=== PATIENT | male | born 1940 | race Caucasian/White ===

== ENCOUNTER → 2019-02-11 10:06 | Outpatient (CLI) | payer MEDICARE, OTHER, SELFPAY ==
--- NOTE | 2019-02-11 10:12 | CA_ITS ---
PROCEDURE: 2-D M-mode and color Doppler study INDICATIONS FOR THE TEST: Chest pain COPD Heart Murmur Tobacco Smoking Palpitations Fatigue Syncope Edema Hypertension+Diabetes Mellitus Rheumatic Fever SOB JENSEN Obesity+Hyperlipidemia+ Family History HD Additional History AF, ABN EKG PATIENT INFORMATION HEIGHT: 73 WEIGHT:270 GENDER: Male B/P:97/63 2-D/M-MODE INTERPRETATION: 2-D MEASUREMENTS OBSERVED VALUES IN CMS Right Ventricular Dimension (RVDd) 3.2 Interventricular Septum (Thickness)(IVsd) 1.6 Left Ventricular Internal Dimensions(LVIDd) 5.2 Left Ventricular Posterior Wall (Thickness)(LVPWd) 1.1 Aortic Root 4.1 Aortic Cusp Separation 1.5 Left Atrial Dimensions (LAD) 5.5 2D 1. Left atrium is moderately enlarged, left ventricle is normal size, mild concentric left ventricular hypertrophy, moderately reduced left ventricular systolic function, visually estimated ejection fraction 35-40%, left ventricle is globally hypokinetic. 2. Right atrium and right ventricle are mildly enlarged with normal contractility. 3. The aortic valve is thickened and calcified. 4. The mitral and tricuspid valve leaflets are minimally thickened. 5. The pulmonic valve is poorly visualized. 6. No significant pericardial effusion noted. DOPPLER INTERROGATION: Doppler interrogation of the aortic, mitral and tricuspid valvular presence of mild aortic, mild mitral and tricuspid regurgitation, tricuspid regurgitation jet velocity is inadequate for calculation of the right ventricular systolic pressure, mild aortic insufficiency is also seen. Diastolic parameters are inconclusive. CONCLUSION: 1. Biatrial enlargement, normal left ventricular size, mild concentric left ventricular hypertrophy, moderately reduced left ventricular systolic function, visually estimated ejection fraction 35-40%, left ventricle is globally hypokinetic, diastolic parameters are inconclusive. 2. Mild aortic, mild mitral and tricuspid regurgitation 3. No significant pericardial effusion noted.
== END ==
PROVIDERS: PCP Family Medicine; Visit Provider Internal Medicine
DX: D75.1 Secondary polycythemia (principal); E66.09 Other obesity due to excess calories; E78.2 Mixed hyperlipidemia; I11.9 Hypertensive heart disease without heart failure; I25.10 Atherosclerotic heart disease of native coronary artery without angina pectoris; I44.0 Atrioventricular block, first degree; I71.4 Abdominal aortic aneurysm, without rupture; I73.9 Peripheral vascular disease, unspecified; R06.09 Other forms of dyspnea; R53.83 Other fatigue; R94.31 Abnormal electrocardiogram [ECG] [EKG]; Z85.528 Personal history of other malignant neoplasm of kidney; Z90.5 Acquired absence of kidney
CPT/HCPCS: 93306

== ENCOUNTER → 2019-07-03 09:54 | Outpatient (CLI) | payer MEDICARE, OTHER, SELFPAY ==
--- NOTE | 2019-07-03 09:57 | US_ITS ---
PROCEDURE: US KIDNEY CLINICAL INDICATION: I48.0 Paroxysmal atrial fibrillation History of renal cell carcinoma COMPARISON: No exams were available for comparison FINDINGS: The right kidney is 13 x 6 x 6.5 cm. No hydronephrosis or cortical thinning. No obvious renal mass. The left kidney has an unremarkable appearance at 12 x 6 x 6 cm. There is some scarring along the lower pole of the left kidney. No obvious renal mass or hydronephrosis. IMPRESSION: Scarring along the lower pole of the left kidney. Otherwise negative renal ultrasound Dictated by: Vignesh Devlin MD 07/03/2019 19:19 Electronically signed by Vignesh Devlin MD in [place] 07/03/2019 19:19
== END ==
PROVIDERS: PCP Family Medicine; Visit Provider Internal Medicine
DX: D75.1 Secondary polycythemia (principal); E66.09 Other obesity due to excess calories; E78.2 Mixed hyperlipidemia; I11.9 Hypertensive heart disease without heart failure; I25.10 Atherosclerotic heart disease of native coronary artery without angina pectoris; I48.0 Paroxysmal atrial fibrillation; I71.4 Abdominal aortic aneurysm, without rupture; I73.9 Peripheral vascular disease, unspecified; R06.09 Other forms of dyspnea; R53.83 Other fatigue; R94.31 Abnormal electrocardiogram [ECG] [EKG]; Z85.528 Personal history of other malignant neoplasm of kidney; Z87.891 Personal history of nicotine dependence
CPT/HCPCS: 76770

== ENCOUNTER 2019-07-22 14:37 | Observation (INO) ==
[2019-07-22 15:27] LABS: Basophils % 0.5 % (0.1-2.0); Eosinophils # 0.1 K/mm3 (0.0-0.4); Eosinophils % 1.5 % (0.1-12.0); Lymphocytes # 1.5 K/mm3 (0.7-4.5); Lymphocytes % 23.4 % (10-50); Mean Corpuscular HGB Conc 30.9 g/dL (31.8-35.4); Monocytes # 0.4 K/mm3 (0.1-1.0); Monocytes % 6.7 % (1.7-9.3); Neutrophils # 4.3 K/mm3 (1.8-7.8); Neutrophils % 67.9 % (37.0-80.0); Platelet Count 302 K/mm3 (142-424); Red Blood Count 1.96 M/mm3 (4.60-6.20); Red Cell Distribution Width 17.5 % (11.5-17.5); White Blood Count 6.3 K/mm3 (4.8-10.8)
[2019-07-22 15:45] LABS: Hematocrit 20.7 % (42.0-52.0); Hemoglobin 6.4 g/dL (14.1-18.0)
--- NOTE | 2019-07-23 07:37 | Pharmacy Consult Notes ---
[facility] Pharmacy VTE Monitoring - Patient Demographics Admission date: 07/23/19 Report Date: 07/23/19 Time: 07:36 Allergies/Adverse Reactions: Patient Allergies Izgddsg-Fie-Fno Reductase Inhibitor Allergy (Severe, Verified 07/22/19 13:54) rhabdo rosuvastatin [From Crestor] Adverse Reaction (Severe, Verified 07/22/19 13:54) rhabdo cilantro Allergy (Uncoded 07/22/19 13:54) Height: 1.83 m Weight: 117.707 kg - VTE Risk Labs: VTE Related Lab Results Hgb 6.4 g/dL (14.1-18.0) L* 07/22/19 14:42 Hct 20.7 % (42.0-52.0) L* 07/22/19 14:42 Plt Count 302 K/mm3 (142-424) 07/22/19 14:42 Was VTE Risk Assessment Performed: Yes VTE Score: 6 VTE Risk Level: Moderate Risk Clinical Trial Participant: No - Prophylaxis VTE Prophylaxis Ordered?: Yes Types of VTE Prophylaxis: TEDS Knee High
[2019-07-23 07:48] LABS: Basophils % 0.6 % (0.1-2.0); Eosinophils # 0.2 K/mm3 (0.0-0.4); Eosinophils % 4.2 % (0.1-12.0); Lymphocytes # 1.3 K/mm3 (0.7-4.5); Lymphocytes % 24.8 % (10-50); Mean Corpuscular Volume 98.2 fl (80-94); Mean Platelet Volume 8.2 fl (7.4-10.4); Monocytes # 0.4 K/mm3 (0.1-1.0); Monocytes % 7.2 % (1.7-9.3); Neutrophils # 3.2 K/mm3 (1.8-7.8); Neutrophils % 63.2 % (37.0-80.0); Platelet Count 228 K/mm3 (142-424); Red Blood Count 2.75 M/mm3 (4.60-6.20); Red Cell Distribution Width 18.2 % (11.5-17.5); White Blood Count 5.1 K/mm3 (4.8-10.8)
[2019-07-23 07:50] LABS: Hemoglobin 8.4 g/dL (14.1-18.0)
[2019-07-23 07:58] LABS: Anion Gap 9.3 mEq/L (5-15); Calcium 8.8 mg/dL (8.5-10.1)
--- NOTE | 2019-07-23 09:52 | Progress Note ---
Subjective Date: 07/23/19 Time: 09:00 Principal diagnosis: Symptomatic anemia Interval history: This is a 79-year-old gentleman who was seen in the outpatient cardiology clinic yesterday. The patient was complaining of extreme fatigue and chest pain. The patient states that he had not felt well for the last several days. Blood work was obtained and the patient did have profound anemia with a hemoglobin of 6.4. The patient was then admitted to the hospital for transfusions of packed red blood cells. The patient has had a total of 4 units of packed red blood cells. His hemoglobin is up to 8.[address] Ledezma's goal for this patient is to have a hemoglobin of 10 or greater. The patient is status post a watchman's device. He is supposed to be on anticoagulation for 45 days post placement of the watchman's device. Dr. Ledezma did call Dr. Lilly this morning to discuss the patient's profound symptomatic anemia and his response to 4 units of packed red blood cells. Dr. Lilly has advised to stop Xarelto. He should be switched to dual antiplatelet therapy for 6 months. At 45 days post watchman's device placement, the patient should undergo a JOSE. He also recommends to continue transfusing the patient until his hemoglobin is 10 or greater. This morning the patient states that he is feeling much better. He states his fatigue has improved. He denies any chest pain, pressure or shortness of breath. He denies any edema, fever, chills, nausea, vomiting, diarrhea, PND or orthopnea. Exam Vital signs and Labs for Last 24 Hours: Temp Pulse Resp BP Pulse Ox 98.4 F 88 17 125/59 L 96 07/23/19 08:00 07/23/19 08:00 07/23/19 08:00 07/23/19 08:00 07/23/19 08:00 Laboratory Results - last 24 hr 07/22/19 14:42: WBC 6.3, RBC 1.96 L*, Hgb 6.4 L*, Hct 20.7 L*, MCV 106.0 H, MCH 32.7 H, MCHC 30.9 L, RDW 17.5, Plt Count 302, MPV 8.0, Neut % (Auto) 67.9, Lymph % (Auto) 23.4, [place] % (Auto) 6.7, Eos % (Auto) 1.5, Baso % (Auto) 0.5, Neut # (Auto) 4.3, Lymph # (Auto) 1.5, [place] # (Auto) 0.4, Eos # (Auto) 0.1, Baso # (Auto) 0.0 07/22/19 14:42: Troponin I < 0.02 07/22/19 17:02: Blood Type A Positive, Antibody Screen Negative, Crossmatch (AHG) See Detail 07/22/19 17:30: Blood Type Confirm A Positive 07/22/19 20:00: Troponin I < 0.02 07/22/19 23:05: Troponin I < 0.02 07/23/19 07:28: WBC 5.1, RBC 2.75 L D, Hgb 8.4 L D, Hct 27.0 L, MCV 98.2 H, MCH 30.5, MCHC 31.0 L, RDW 18.2 H, Plt Count 228, MPV 8.2, Neut % (Auto) 63.2, Lymph % (Auto) 24.8, [place] % (Auto) 7.2, Eos % (Auto) 4.2, Baso % (Auto) 0.6, Neut # (Auto) 3.2, Lymph # (Auto) 1.3, [place] # (Auto) 0.4, Eos # (Auto) 0.2, Baso # (Auto) 0.0 07/23/19 07:28: Sodium 139, Potassium 4.3, Chloride 105, Carbon Dioxide 29, Anion Gap 9.3, BUN 24 H, Creatinine 1.32 H, Estimated Creat Clear 78, Estimated GFR 53 L, Est GFR ( Amer) 64, Glucose 101, Calcium 8.8, Magnesium 1.5 I & O for Last 24 hours: Intake & Output 07/20/19 07/21/19 07/22/19 07/23/19 23:59 23:59 23:59 23:59 Intake Total 715 / 715 Balance 715 / 715 Weight 254 lb 259 lb 8 oz Narrative: Telemetry strip is sinus bradycardia with a rate of 56 - *Routine HEENT Exam Head: Present: normocephalic, atraumatic Eye: Present: EOMI, PERRL ENT: Present: mucous membranes moist - *Routine Neck Exam Present: supple, full ROM, normal carotid upstroke. Absent: JVD, carotid bruit, lymphadenopathy - *Routine Respiratory Exam Present: CTA bilaterally - *Routine Cardiovascular Exam Present: RRR, Normal S1, Normal S2. Absent: murmur, gallop - *Routine Abdominal Exam Present: soft, normoactive bowel sounds. Absent: tenderness, distended - *Routine Extremities Exam Present: full ROM, pulses intact. Absent: cyanosis, clubbing, edema, normal capillary refill, calf tenderness - *Routine Skin Exam Present: intact, warm. Absent: erythema, rash - *Routine Neurological Exam Present: alert, oriented X3, CN II-XII intact. Absent: sensory deficit, motor deficit - Detailed Eye Exam Eyelids: Left normal inspection Progress Note: A&P (1) Symptomatic anemia Status: Acute Current Visit: Yes (2) Iron deficiency anemia Status: Acute Current Visit: Yes (3) Angina pectoris Status: Acute Current Visit: Yes (4) Atrial fibrillation Status: Chronic Current Visit: No (5) Fatigue Status: Chronic Current Visit: No (6) Obesity Status: Chronic Current Visit: No (7) PAD (peripheral artery disease) Status: Chronic Current Visit: No (8) AAA (abdominal aortic aneurysm) Status: Chronic Current Visit: No (9) History of renal cell carcinoma Status: Chronic Current Visit: No (10) Hyperlipidemia Status: Chronic Current Visit: No (11) Hypertensive heart disease Status: Chronic Current Visit: No (12) Coronary artery disease Status: Chronic Current Visit: No (13) Presence of Watchman left atrial appendage closure device Status: Chronic Current Visit: Yes Assessment and Plan for All Diagnoses:: Plan: 1. The patient was admitted to the hospital for symptomatic anemia. The patient has been transfused with 4 units of packed red blood cells. His hemoglobin has went up to 8.[address] Ledezma recommends a hemoglobin of 10 or greater. The patient will likely need at least 2 more additional units of packed red blood cells. 2. The patient will need to be on a proton pump inhibitor. We will get him started on Protonix [address] Ledezma has discussed this case with Dr. Lilly. Although the patient has not had his watchman's device 45 days, given his symptomatic anemia will need to stop his Xarelto. He will need to be switched over to dual antiplatelet therapy with aspirin 81 mg daily and Plavix 75 mg daily for 6 months. We have discussed this with the patient and we will get him started on dual antiplatelet therapy today. 4. The patient will need a JOSE 45 days post watchman's device per Dr. Lilly's recommendations. 5. His coronary artery disease is likely stable. His angina was most likely from his anemia. He is ruled out for an [place]. No plans for invasive cardiac testing. 6. His blood pressure is well controlled. 7. His LDL goal is less than 55. 8. The patient does have a AAA which is followed in our outpatient clinic. 9. PAD is stable. 10. The patient does have paroxysmal atrial fibrillation. He is in sinus rhythm this morning. As mentioned before he is status post watchman's device. His Xarelto is being stopped and he will be switched over to dual antiplatelet therapy for 6 months. 11. Once the patient's hemoglobin is 10 or greater then he can be discharged from a cardiac standpoint. 12. Further recommendations will be made pending the patient's response to treatment. Thank you for the opportunity to help participate in the care of this patient.
[2019-07-23 12:37] LABS: Hemoglobin 8.5 g/dL (14.1-18.0)
--- NOTE | 2019-07-23 13:03 | History & Physical Report ---
*Admission Date: 07/22/19 *Chief complaint: Chest pain and fatigue *History of present illness: 79 YOM resting in bed, present. He reports he has a good feeling better after receiving blood. Denies SOA or CP. Informed him he most likely WILL NOT be D/C today. He verbalizes he understands. This is a 79-year-old gentleman who was seen in the outpatient cardiology clinic yesterday. The patient was complaining of extreme fatigue and chest pain. The patient states that he had not felt well for the last several days. Blood work was obtained and the patient did have profound anemia with a hemoglobin of 6.4. The patient was then admitted to the hospital for transfusions of packed red blood cells. The patient has had a total of 4 units of packed red blood cells. His hemoglobin is up to 8.[address] Ledezma's goal for this patient is to have a hemoglobin of 10 or greater. The patient is status post a watchman's device. He is supposed to be on anticoagulation for 45 days post placement of the watchman's device. Dr. Ledezma did call Dr. Lilly this morning to discuss the patient's profound symptomatic anemia and his response to 4 units of packed red blood cells. Dr. Lilly has advised to stop Xarelto. He should be switched to dual antiplatelet therapy for 6 months. At 45 days post watchman's device placement, the patient should undergo a JOSE. He also recommends to continue transfusing the patient until his hemoglobin is 10 or greater. This morning the patient states that he is feeling much better. He states his fatigue has improved. He denies any chest pain, pressure or shortness of breath. He denies any edema, fever, chills, nausea, vomiting, diarrhea, PND or orthopnea. (Per Dillan Hemphill APRN) [facility] History Medical History: Reports:: Cancer (KIDNEY CANCER), Coronary Artery Disease, Diabetes Mellitus Type 2, Hyperlipidemia, Hypertension Denies:: Diabetes Mellitus Type 1, MRSA, Seizures *Have you ever received a pneumonia vaccine?: Yes *Have you received a flu vaccine this season?: Yes Other Medical History: Reports: Hypothyroidism Other Surgeries: Yes: No Previous Surgery, Angioplasty, Cancer Surgery, Other Amputation: No Fractures: No - *Social History Educational Level: Completed College Smoking Status: Former smoker Tobacco Type: cigarettes Alcohol Intake: never Alcohol Intake Frequency:: 3 or more drinks per day Substance Use Type: denies use *Occupational Status:: retired Housing: house Household Members: spouse *Travel in the last 8 weeks: None Family Hx:: Cancer Review of Systems - Review of Systems Review of systems:: pertinent systems reviewed and negative unless documented below - Constitutional Reports fatigue - Eyes Denies blurry vision, Denies loss of vision - ENT Denies difficulty swallowing, Denies sinus pain, Denies sinus pressure - *Cardiovascular Reports chest pain, Reports chest pain at rest, Reports shortness of breath - *Respiratory Reports shortness of breath, Denies chest congestion - *Gastrointestinal Reports black, tarry stools, Denies abdominal pain - *Genitourinary Denies difficulty urinating - *Musculoskeletal Denies neck pain - Integumentary/Breasts Denies yellowing of the skin, Denies rash - *Neurologic Denies abnormal movements, Denies seizure-like activity - Endocrine Denies cold intolerance, Denies increased thirst - Hematologic/Lymphatic Reports easy bleeding - Allergic/Immunologic Denies throat swelling, Denies wheezing Meds Home Medications Medication Instructions Recorded Confirmed Type nitroglycerin 0.4 mg sublingual 0.4 mg SUBLINGUAL Q5M PRN 10/30/17 07/22/19 History tablet nutritional supplement-fiber oral 1 each PO DAILYP PRN g 09/03/18 07/23/19 History liquid magnesium 400 mg (as magnesium 400 mg PO DAILY cap 02/04/19 07/22/19 History oxide) capsule aspirin 81 mg tablet,delayed 81 mg PO DAILY 06/11/19 07/22/19 History release rivaroxaban 20 mg tablet 20 mg PO DAILY 07/03/19 07/22/19 History Digoxin 125 mcg PO DAILY 07/22/19 07/22/19 History Docusate Sodium 100 mg PO BID 07/22/19 07/22/19 History Ezetimibe 10 mg PO DAILY 07/22/19 07/23/19 History Ferrous Sulfate 325 mg PO BID 07/22/19 07/22/19 History Levothyroxine Sodium [Synthroid 50 mcg PO DAILY 07/22/19 07/23/19 History 50mcg (0.05mg) tab] Losartan/Hydrochlorothiazide 1 tab PO DAILY 07/22/19 07/22/19 History [Hyzaar 100-12.5 Tablet] dilTIAZem HCl [Diltiazem 24Hr ER 180 mg PO BID 07/22/19 07/22/19 History (Xr)] Tamsulosin HCl [Flomax 0.4mg 0.4 mg PO HS 07/23/19 07/23/19 History capsule] Allergies Allergy/AdvReac Type Severity Reaction Status Date / Time Jrnuosq-Myy-Wgc Reductase Allergy Severe rhabdo Verified 07/22/19 13:54 Inhibitor rosuvastatin [From Crestor] AdvReac Severe rhabdo Verified 07/22/19 13:54 cilantro Allergy Uncoded 07/22/19 13:54 Exam Vital signs and Labs for Last 24 Hours: Temp Pulse Resp BP Pulse Ox 98.1 F 61 17 119/54 L 96 07/23/19 11:48 07/23/19 11:48 07/23/19 11:48 07/23/19 11:48 07/23/19 11:48 Laboratory Results - last 24 hr 07/22/19 14:42: WBC 6.3, RBC 1.96 L*, Hgb 6.4 L*, Hct 20.7 L*, MCV 106.0 H, MCH 32.7 H, MCHC 30.9 L, RDW 17.5, Plt Count 302, MPV 8.0, Neut % (Auto) 67.9, Lymph % (Auto) 23.4, [place] % (Auto) 6.7, Eos % (Auto) 1.5, Baso % (Auto) 0.5, Neut # (Auto) 4.3, Lymph # (Auto) 1.5, [place] # (Auto) 0.4, Eos # (Auto) 0.1, Baso # (Auto) 0.0 07/22/19 14:42: Troponin I < 0.02 07/22/19 17:02: Blood Type A Positive, Antibody Screen Negative, Crossmatch (AHG) See Detail 07/22/19 17:30: Blood Type Confirm A Positive 07/22/19 20:00: Troponin I < 0.02 07/22/19 23:05: Troponin I < 0.02 07/23/19 07:28: WBC 5.1, RBC 2.75 L D, Hgb 8.4 L D, Hct 27.0 L, MCV 98.2 H, MCH 30.5, MCHC 31.0 L, RDW 18.2 H, Plt Count 228, MPV 8.2, Neut % (Auto) 63.2, Lymph % (Auto) 24.8, [place] % (Auto) 7.2, Eos % (Auto) 4.2, Baso % (Auto) 0.6, Neut # (Auto) 3.2, Lymph # (Auto) 1.3, [place] # (Auto) 0.4, Eos # (Auto) 0.2, Baso # (Auto) 0.0 07/23/19 07:28: Sodium 139, Potassium 4.3, Chloride 105, Carbon Dioxide 29, Anion Gap 9.3, BUN 24 H, Creatinine 1.32 H, Estimated Creat Clear 78, Estimated GFR 53 L, Est GFR ( Amer) 64, Glucose 101, Calcium 8.8, Magnesium 1.5 07/23/19 12:08: Hgb 8.5 L, Hct 27.0 L I & O for Last 24 hours: Intake & Output 07/20/19 07/21/19 07/22/19 07/23/19 23:59 23:59 23:59 23:59 Intake Total 715 / 715 34 / 34 Balance 715 / 715 34 / 34 Weight 254 lb 259 lb 8 oz - Constitutional no acute distress, obese - *Routine HEENT Exam Head: Present: normocephalic, atraumatic. Absent: tenderness of temporal artery Eye: Present: EOMI, PERRL, normal accommodation. Absent: scleral injection, periorbital tenderness ENT: Present: mucous membranes moist. Absent: sinus tenderness - *Routine Neck Exam Present: supple, full ROM, trachea midline. Absent: tenderness, tracheal deviation - *Routine Respiratory Exam Present: CTA bilaterally. Absent: accessory muscle use, rales - *Routine Cardiovascular Exam Present: RRR. Absent: murmur - *Routine Abdominal Exam Present: soft, obese. Absent: tenderness, firm - *Routine Extremities Exam Present: full ROM, pulses intact. Absent: cyanosis, Venu's sign, tenderness - Routine Back/Spine/Pelvis Exam Back/Spine: Present: full ROM. Absent: CVA tenderness, pain with flexion - *Routine Skin Exam Present: intact, warm. Absent: cyanosis, erythema - *Routine Neurological Exam Present: alert, oriented X3, CN II-XII intact. Absent: altered mental status, hemineglect - Routine Psychiatric Exam Present: normal affect, normal thought process. Absent: suicidal ideation, homicidal ideation H&P: Result - Imaging and Cardiology Chest x-ray Status: final report (IMPRESSION: No acute findings.) Assessment and Plan (1) Symptomatic anemia Current visit: Yes Status: Acute Category: Medical Code(s): D64.9 - Anemia, unspecified (2) Iron deficiency anemia Current visit: Yes Status: Acute Category: Medical Code(s): D50.9 - Iron deficiency anemia, unspecified (3) Angina pectoris Current visit: Yes Status: Acute Category: Medical Code(s): I20.9 - Angina pectoris, unspecified (4) Atrial fibrillation Current visit: No Status: Chronic Qualifiers: Atrial fibrillation type: paroxysmal Qualified Code(s): I48.0 - Paroxysmal atrial fibrillation Category: Medical Code(s): I48.91 - Unspecified atrial fibrillation (5) Fatigue Current visit: No Status: Chronic Qualifiers: Fatigue type: unspecified Qualified Code(s): R53.83 - Other fatigue Category: Medical Code(s): R53.83 - Other fatigue (6) Obesity Current visit: No Status: Chronic Qualifiers: Obesity type: due to excess calories Obesity classification: adult class 2 (BMI 35 - 39.9) Serious obesity comorbidity presence: unspecified whether se rious comorbidity present Body mass index: BMI 37.0-37.9 Qualified Code(s): E66.09 - Other obesity due to excess calories; Z68.37 - Body mass index (BMI) 37.0-37.9, adult Category: Medical Code(s): E66.9 - Obesity, unspecified (7) PAD (peripheral artery disease) Current visit: No Status: Chronic Category: Medical Code(s): I73.9 - Peripheral vascular disease, unspecified (8) AAA (abdominal aortic aneurysm) Current visit: No Status: Chronic Qualifiers: Presence of rupture: without rupture Qualified Code(s): I71.4 - Abdominal aortic aneurysm, without rupture Category: Medical Code(s): I71.4 - Abdominal aortic aneurysm, without rupture (9) History of renal cell carcinoma Current visit: No Status: Chronic Category: Medical Code(s): Z85.528 - Personal history of other malignant neoplasm of kidney (10) Hyperlipidemia Current visit: No Status: Chronic Qualifiers: Hyperlipidemia type: mixed hyperlipidemia Qualified Code(s): E78.2 - Mixed hyperlipidemia Category: Medical Code(s): E78.5 - Hyperlipidemia, unspecified (11) Hypertensive heart disease Current visit: No Status: Chronic Qualifiers: Heart failure presence: without heart failure Qualified Code(s): I11.9 - Hypertensive heart disease without heart failure Category: Medical Code(s): I11.9 - Hypertensive heart disease without heart failure (12) Coronary artery disease Current visit: No Status: Chronic Qualifiers: Coronary Disease-Associated Artery/Lesion type: [place] artery [place] vs. transplanted heart: [place] heart Associated angina: with other forms of angina Qualified Code(s): I25.118 - Atherosclerotic heart disease of [place] coronary artery with other forms of angina pectoris Category: Medical Code(s): I25.10 - Atherosclerotic heart disease of [place] coronary artery without angina pectoris (13) Presence of Watchman left atrial appendage closure device Current visit: Yes Status: Chronic Category: Medical Code(s): Z95.818 - Presence of other cardiac implants and grafts - Assessment and plan all Dx Assessment and Plan for all problems:: Rounds completed Dr. Romero will round this afternoon, all orders per Dr. Romero Cards has seen and recommends: Plan: 1. The patient was admitted to the hospital for symptomatic anemia. The patient has been transfused with 4 units of packed red blood cells. His hemoglobin has went up to 8.[address] Ledezma recommends a hemoglobin of 10 or greater. The patient will likely need at least 2 more additional units of packed red blood cells. 2. The patient will need to be on a proton pump inhibitor. We will get him started on Protonix [address] Ledezma has discussed this case with Dr. Lilly. Although the patient has not had his watchman's device 45 days, given his symptomatic anemia will need to stop his Xarelto. He will need to be switched over to dual antiplatelet therapy with aspirin 81 mg daily and Plavix 75 mg daily for 6 months. We have discussed this with the patient and we will get him started on dual antiplatelet therapy today. 4. The patient will need a JOSE 45 days post watchman's device per Dr. Lilly's recommendations. 5. His coronary artery disease is likely stable. His angina was most likely from his anemia. He is ruled out for an [place]. No plans for invasive cardiac testing. 6. His blood pressure is well controlled. 7. His LDL goal is less than 55. 8. The patient does have a AAA which is followed in our outpatient clinic. 9. PAD is stable. 10. The patient does have paroxysmal atrial fibrillation. He is in sinus rhythm this morning. As mentioned before he is status post watchman's device. His Xarelto is being stopped and he will be switched over to dual antiplatelet therapy for 6 months. 11. Once the patient's hemoglobin is 10 or greater then he can be discharged from a cardiac standpoint. 12. Further recommendations will be made pending the patient's response to treatment. 1. PRBC's 2 addtl units 2. Labs AM
[2019-07-23 21:18] LABS: Hematocrit 32.8 % (42.0-52.0)
[2019-07-23 21:34] LABS: Hemoglobin 10.5 g/dL (14.1-18.0)
[2019-07-24 06:27] LABS: Basophils % 0.7 % (0.1-2.0); Eosinophils # 0.2 K/mm3 (0.0-0.4); Eosinophils % 4.3 % (0.1-12.0); Hematocrit 33.9 % (42.0-52.0); Hemoglobin 10.6 g/dL (14.1-18.0); Lymphocytes # 1.3 K/mm3 (0.7-4.5); Lymphocytes % 24.3 % (10-50); Mean Corpuscular HGB Conc 31.2 g/dL (31.8-35.4); Mean Corpuscular Volume 97.8 fl (80-94); Mean Platelet Volume 7.8 fl (7.4-10.4); Monocytes # 0.5 K/mm3 (0.1-1.0); Monocytes % 8.4 % (1.7-9.3); Neutrophils # 3.3 K/mm3 (1.8-7.8); Neutrophils % 62.3 % (37.0-80.0); Platelet Count 236 K/mm3 (142-424); Red Blood Count 3.47 M/mm3 (4.60-6.20); White Blood Count 5.3 K/mm3 (4.8-10.8)
[2019-07-24 06:49] LABS: Albumin Level 2.8 gm/dL (3.4-5.0); Albumin/Globulin Ratio 0.8 (1.1-1.8); Anion Gap 11.4 mEq/L (5-15); Bilirubin,Total 0.2 mg/dL (0.2-1.0); Calcium 8.7 mg/dL (8.5-10.1); Globulin 3.4 gm/dl (1.3-3.2); Total Protein,Serum 6.2 gm/dL (6.4-8.2)
--- NOTE | 2019-07-24 09:59 | Progress Note ---
Subjective Date: 07/24/19 (.) Time: 09:57 Principal diagnosis: Symptomatic anemia Interval history: Mr. Swartz was admitted for symptomatic anemia. He has been transfused with 6 units of packed red blood cells. His hemoglobin this morning is up to 10.6. He states that his fatigue has significantly improved. He denies any chest pain, pressure, shortness of breath or edema. He denies any fever, chills, nausea, vomiting, diarrhea, PND or orthopnea. Exam Vital signs and Labs for Last 24 Hours: Temp Pulse Resp BP Pulse Ox 97.9 F 68 20 106/67 L 94 L 07/24/19 08:00 07/24/19 08:00 07/24/19 08:00 07/24/19 08:00 07/24/19 08:00 Laboratory Results - last 24 hr 07/22/19 17:02: Blood Type A Positive, Antibody Screen Negative, Crossmatch (AHG) See Detail 07/23/19 12:08: Hgb 8.5 L, Hct 27.0 L 07/23/19 14:05: Stool Occult Blood Negative 07/23/19 21:02: Hgb 10.5 L D, Hct 32.8 L 07/24/19 05:57: WBC 5.3, RBC 3.47 L D, Hgb 10.6 L, Hct 33.9 L, MCV 97.8 H, MCH 30.5, MCHC 31.2 L, RDW 18.0 H, Plt Count 236, MPV 7.8, Neut % (Auto) 62.3, Lymph % (Auto) 24.3, Irion % (Auto) 8.4, Eos % (Auto) 4.3, Baso % (Auto) 0.7, Neut # (Auto) 3.3, Lymph # (Auto) 1.3, Irion # (Auto) 0.5, Eos # (Auto) 0.2, Baso # (Auto) 0.0 07/24/19 05:57: Sodium 141, Potassium 4.4, Chloride 104, Carbon Dioxide 30, Anion Gap 11.4, BUN 15 D, Creatinine 1.13, Estimated Creat Clear 91, Estimated GFR 63, Est GFR ( Amer) 76, Glucose 102, Calcium 8.7, Total Bilirubin 0.2, AST 22, ALT 25, Alkaline Phosphatase 62, Total Protein 6.2 L, Albumin 2.8 L , Globulin 3.4 H, Albumin/Globulin Ratio 0.8 L I & O for Last 24 hours: Intake & Output 07/21/19 07/22/19 07/23/19 07/24/19 23:59 23:59 23:59 23:59 Intake Total 715 / 715 1371 / 1371 360 / 360 Balance 715 / 715 1371 / 1371 360 / 360 Weight 254 lb 259 lb 8 oz 259 lb 3 oz Narrative: His telemetry strip shows sinus bradycardia with a rate of 57. - *Routine HEENT Exam Head: Present: normocephalic, atraumatic Eye: Present: EOMI, PERRL ENT: Present: mucous membranes moist - *Routine Neck Exam Present: supple, full ROM, normal carotid upstroke. Absent: JVD, carotid bruit, lymphadenopathy - *Routine Respiratory Exam Present: CTA bilaterally - *Routine Cardiovascular Exam Present: Normal S1, Normal S2, bradycardia. Absent: murmur, gallop - *Routine Abdominal Exam Present: soft, normoactive bowel sounds. Absent: tenderness, distended - *Routine Extremities Exam Present: full ROM, pulses intact, normal capillary refill. Absent: cyanosis, clubbing, edema - *Routine Skin Exam Present: intact, warm. Absent: erythema, rash - *Routine Neurological Exam Present: alert, oriented X3, CN II-XII intact - Detailed Eye Exam Eyelids: Left normal inspection Progress Note: A&P (1) Symptomatic anemia Status: Acute Current Visit: Yes (2) Iron deficiency anemia Status: Acute Current Visit: Yes (3) Angina pectoris Status: Resolved Current Visit: Yes (4) Atrial fibrillation Status: Chronic Current Visit: No (5) Fatigue Status: Chronic Current Visit: No (6) Obesity Status: Chronic Current Visit: No (7) PAD (peripheral artery disease) Status: Chronic Current Visit: No (8) AAA (abdominal aortic aneurysm) Status: Chronic Current Visit: No (9) History of renal cell carcinoma Status: Chronic Current Visit: No (10) Hyperlipidemia Status: Chronic Current Visit: No (11) Hypertensive heart disease Status: Chronic Current Visit: No (12) Coronary artery disease Status: Chronic Current Visit: No (13) Presence of Watchman left atrial appendage closure device Status: Chronic Current Visit: Yes Assessment and Plan for All Diagnoses:: Plan: 1. The patient was admitted to the hospital with symptomatic anemia. He has been transfused with 6 units of packed red blood cells. His hemoglobin is up to 10.6 today from 6.4. He is tolerated blood transfusions well and has no complaints this morning. 2. His coronary artery disease is stable. 3. His blood pressure is well controlled 4. His LDL goal is less than 55 5. He does have a AAA which is followed in our outpatient clinic. 6. His PAD is stable 7. The patient does have paroxysmal atrial fibrillation he is remaining in sinus rhythm at this time. He is status post watchman's device. His Xarelto was stopped yesterday and he was switched to dual antiplatelet therapy with Plavix and aspirin which he will continue for 6 months. He is tolerating the Plavix and aspirin well with no complaints. 8. The patient is stable for discharge home today from a cardiac standpoint. He will need to follow-up on our outpatient clinic in 2 weeks. The patient will need to go home on aspirin 81 mg daily and Plavix 75 mg daily and discontinue his Xarelto. Thank you for the opportunity to help participate in the care of this patient.
--- NOTE | 2019-07-24 12:31 | Discharge Summary ---
General - General Admission date:: 07/22/19 Discharge date: 07/24/19 HPI HPI: 79 YOM resting in bed, present. He reports he has a good feeling better after receiving blood. Denies SOA or CP. Informed him he most likely WILL NOT be D/C today. He verbalizes he understands. This is a 79-year-old gentleman who was seen in the outpatient cardiology clinic yesterday. The patient was complaining of extreme fatigue and chest pain. The patient states that he had not felt well for the last several days. Blood work was obtained and the patient did have profound anemia with a hemoglobin of 6.4. The patient was then admitted to the hospital for transfusions of packed red blood cells. The patient has had a total of 4 units of packed red blood cells. His hemoglobin is up to 8.[address] Ledezma's goal for this patient is to have a hemoglobin of 10 or greater. The patient is status post a watchman's device. He is supposed to be on anticoagulation for 45 days post placement of the watchman's device. Dr. Ledezma did call Dr. Lilly this morning to discuss the patient's profound symptomatic anemia and his response to 4 units of packed red blood cells. Dr. Lilly has advised to stop Xarelto. He should be switched to dual antiplatelet therapy for 6 months. At 45 days post watchman's device placement, the patient should undergo a JOSE. He also recommends to continue transfusing the patient until his hemoglobin is 10 or greater. This morning the patient states that he is feeling much better. He states his fatigue has improved. He denies any chest pain, pressure or shortness of breath. He denies any edema, fever, chills, nausea, vomiting, diarrhea, PND or orthopnea. (Per Dillan Hemphill APRN) Hospital Course Hospital Course: pt has did well after transfusion of 6 units of blood - he is azam diet and act and has seen card -incipal diagnosis: Symptomatic anemia Interval history: This is a 79-year-old gentleman who was seen in the outpatient cardiology clinic yesterday. The patient was complaining of extreme fatigue and chest pain. The patient states that he had not felt well for the last several days. Blood work was obtained and the patient did have profound anemia with a hemoglobin of 6.4. The patient was then admitted to the hospital for transfusions of packed red blood cells. The patient has had a total of 4 units of packed red blood cells. His hemoglobin is up to 8.[address] Ledezma's goal for this patient is to have a hemoglobin of 10 or greater. The patient is status post a watchman's device. He is supposed to be on anticoagulation for 45 days post placement of the watchman's device. Dr. Ledezma did call Dr. Lilly this morning to discuss the patient's profound symptomatic anemia and his response to 4 units of packed red blood cells. Dr. Lilly has advised to stop Xarelto. He should be switched to dual antiplatelet therapy for 6 months. At 45 days post watchman's device placement, the patient should undergo a JOSE. He also recommends to continue transfusing the patient until his hemoglobin is 10 or greater. This morning the patient states that he is feeling much better. He states his fatigue has improved. He denies any chest pain, pressure or shortness of breath. He denies any edema, fever, chills, nausea, vomiting, diarrhea, PND or orthopnea. he patient was admitted to the hospital with symptomatic anemia. He has been transfused with 6 units of packed red blood cells. His hemoglobin is up to 10.6 today from 6.4. He is tolerated blood transfusions well and has no complaints this morning. 2. His coronary artery disease is stable. 3. His blood pressure is well controlled 4. His LDL goal is less than 55 5. He does have a AAA which is followed in our outpatient clinic. 6. His PAD is stable 7. The patient does have paroxysmal atrial fibrillation he is remaining in sinus rhythm at this time. He is status post watchman's device. His Xarelto was stopped yesterday and he was switched to dual antiplatelet therapy with Plavix and aspirin which he will continue for 6 months. He is tolerating the Plavix and aspirin well with no complaints. 8. The patient is stable for discharge home today from a cardiac standpoint. He will need to follow-up on our outpatient clinic in 2 weeks. The patient will need to go home on aspirin 81 mg daily and Plavix 75 mg daily and discontinue his Xarelto. Objective Vital signs: Temp Pulse Resp BP Pulse Ox 98.0 F 70 18 108/70 L 95 07/24/19 11:07 07/24/19 11:07 07/24/19 11:07 07/24/19 11:07 07/24/19 11:07 no acute distress, obese - *Routine HEENT Exam Head: Present: normocephalic Eye: Present: EOMI, PERRL ENT: Present: mucous membranes dry - *Routine Neck Exam Absent: JVD - *Routine Respiratory Exam Present: CTA bilaterally - *Routine Cardiovascular Exam Present: RRR, murmur, S4 - *Routine Abdominal Exam Present: soft - *Routine Extremities Exam Present: edema. Absent: calf tenderness - *Routine Skin Exam Present: intact - *Routine Neurological Exam Present: alert, oriented X3, CN II-XII intact - Routine Psychiatric Exam Present: normal affect Results Labs on day of discharge: Labs from last 24 hours 07/24/19 07/24/19 07/23/19 05:57 05:57 21:02 WBC 5.3 RBC 3.47 L D Hgb 10.6 L 10.5 L D Hct 33.9 L 32.8 L MCV 97.8 H MCH 30.5 MCHC 31.2 L RDW 18.0 H Plt Count 236 MPV 7.8 Neut % (Auto) 62.3 Lymph % (Auto) 24.3 Forrest % (Auto) 8.4 Eos % (Auto) 4.3 Baso % (Auto) 0.7 Neut # (Auto) 3.3 Lymph # (Auto) 1.3 Forrest # (Auto) 0.5 Eos # (Auto) 0.2 Baso # (Auto) 0.0 Sodium 141 Potassium 4.4 Chloride 104 Carbon Dioxide 30 Anion Gap 11.4 BUN 15 D Creatinine 1.13 Estimated Creat Clear 91 Estimated GFR 63 Est GFR ( Amer) 76 Glucose 102 Calcium 8.7 Total Bilirubin 0.2 AST 22 ALT 25 Alkaline Phosphatase 62 Total Protein 6.2 L Albumin 2.8 L Globulin 3.4 H Albumin/Globulin Ratio 0.8 L Stool Occult Blood Blood Type Antibody Screen Crossmatch ([facility]) 07/23/19 07/23/19 07/22/19 14:05 12:08 17:02 WBC RBC Hgb 8.5 L Hct 27.0 L MCV MCH MCHC RDW Plt Count MPV Neut % (Auto) Lymph % (Auto) Forrest % (Auto) Eos % (Auto) Baso % (Auto) Neut # (Auto) Lymph # (Auto) Forrest # (Auto) Eos # (Auto) Baso # (Auto) Sodium Potassium Chloride Carbon Dioxide Anion Gap BUN Creatinine Estimated Creat Clear Estimated GFR Est GFR ( Amer) Glucose Calcium Total Bilirubin AST ALT Alkaline Phosphatase Total Protein Albumin Globulin Albumin/Globulin Ratio Stool Occult Blood Negative Blood Type A Positive Antibody Screen Negative Crossmatch (AHG) See Detail DS: Diagnosis - Discharge Diagnosis (1) Symptomatic anemia Status: Acute (2) Iron deficiency anemia Status: Acute (3) Angina pectoris Status: Resolved (4) Atrial fibrillation Status: Chronic (5) Fatigue Status: Chronic (6) Obesity Status: Chronic (7) PAD (peripheral artery disease) Status: Chronic (8) AAA (abdominal aortic aneurysm) Status: Chronic (9) History of renal cell carcinoma Status: Chronic (10) Hyperlipidemia Status: Chronic (11) Hypertensive heart disease Status: Chronic (12) Coronary artery disease Status: Chronic (13) Presence of Watchman left atrial appendage closure device Status: Chronic Discharge Plan - Patient Discharge Instructions ACTIVITY: Continue current activity DIET: continue same diet Patient Instructions: Anemia, DI for Angina, DI for Iron Deficiency Anemia- Adult - Follow up Plan Disposition: Home, Self-Custodial Medications: Home Medications Medication Instructions Recorded Confirmed Type nitroglycerin 0.4 mg sublingual 0.4 mg SUBLINGUAL Q5M PRN 10/30/17 07/22/19 H istory tablet nutritional supplement-fiber oral 1 each PO DAILYP PRN g 09/03/18 07/23/19 History liquid magnesium 400 mg (as magnesium 400 mg PO DAILY cap 02/04/19 07/22/19 History oxide) capsule aspirin 81 mg tablet,delayed 81 mg PO DAILY 06/11/19 07/22/19 History release rivaroxaban 20 mg tablet 20 mg PO DAILY 07/03/19 07/22/19 History Digoxin 125 mcg PO DAILY 07/22/19 07/22/19 History Docusate Sodium 100 mg PO BID 07/22/19 07/22/19 History Ezetimibe 10 mg PO DAILY 07/22/19 07/23/19 History Ferrous Sulfate 325 mg PO BID 07/22/19 07/22/19 History Levothyroxine Sodium [Synthroid 50 mcg PO DAILY 07/22/19 07/23/19 History 50mcg (0.05mg) tab] Losartan/Hydrochlorothiazide 1 tab PO DAILY 07/22/19 07/22/19 History [Hyzaar 100-12.5 Tablet] dilTIAZem HCl [Diltiazem 24Hr ER 180 mg PO BID 07/22/19 07/22/19 History (Xr)] Tamsulosin HCl [Flomax 0.4mg 0.4 mg PO HS 07/23/19 07/23/19 History capsule] Aspirin [Aspirin 81mg EC Tab] 81 mg PO DAILY #30 tablet. 07/24/19 Rx Clopidogrel Bisulfate [Plavix 75mg 75 mg PO DAILY #30 tab 07/24/19 Rx Tab] Prescriptions/Medication Reconciliation: New Aspirin [Aspirin 81mg EC Tab] 81 mg PO DAILY #30 tablet. Clopidogrel Bisulfate [Plavix 75mg Tab] 75 mg PO DAILY #30 tab Continued nitroglycerin 0.4 mg sublingual tablet 0.4 mg SUBLINGUAL Q5M PRN PRN Reason: Chest Pain magnesium 400 mg (as magnesium oxide) capsule 400 mg PO DAILY cap aspirin 81 mg tablet,delayed release 81 mg PO DAILY Losartan/Hydrochlorothiazide [Hyzaar 100-12.5 Tablet] 1 tab PO DAILY Levothyroxine Sodium [Synthroid 50mcg (0.05mg) tab] 50 mcg PO DAILY Ferrous Sulfate 325 mg PO BID Ezetimibe 10 mg PO DAILY Docusate Sodium 100 mg PO BID Digoxin 125 mcg PO DAILY dilTIAZem HCl [Diltiazem 24Hr ER (Xr)] 180 mg PO BID Tamsulosin HCl [Flomax 0.4mg capsule] 0.4 mg PO HS Discontinued rivaroxaban 20 mg tablet 20 mg PO DAILY No Action nutritional supplement-fiber oral liquid 1 each PO DAILYP PRN g PRN Reason: Constipation - Problem Reconciliation Problems Reviewed?: Yes
== END 2019-07-24 13:55 | disposition home or self-care (01) ==
LOC: LAB 14:37 → 2ND 14:37
PROVIDERS: ADMIT Emergency Medicine; ATTEND Emergency Medicine
DX: I71.4 Abdominal aortic aneurysm, without rupture; Z95.818 Presence of other cardiac implants and grafts; Z79.899 Other long term (current) drug therapy; Z79.02 Long term (current) use of antithrombotics/antiplatelets; I11.9 Hypertensive heart disease without heart failure; Z85.528 Personal history of other malignant neoplasm of kidney; I25.118 Atherosclerotic heart disease of native coronary artery with other forms of angina pectoris; D50.9 Iron deficiency anemia, unspecified
CPT/HCPCS: 36415; 71020; 71046; 80048; 80053; 82272; 83735; 84484; 85014; 85018; 85025; 86850; G0328; G0378; P9016

== ENCOUNTER → 2021-01-20 14:49 | Outpatient (CLI) | payer MEDICARE, OTHER, SELFPAY ==
--- NOTE | 2021-01-20 14:53 | CA_ITS ---
APPROVED REPORT EXAM: Comprehensive 2D, Doppler, and color-flow Echocardiogram Igniter Assembler: Mitzi Abad RT(R) Ht: 6 ft 0 in Wt: 262lbs BSA: 2.39 BP: 123/51 mmHg Indications: bradycardia, ex smoker, fatigue, HTN, obesity, hyperlipidemia, LBBB, CAD, CM, renal cell CA, AFIB, AAA Echo Enhancing Agent Indication: Endocardial border delineation Agent(s) / Amount(s) Used: Definity 2 cc Comments: Definity images are after report in viewer 2D Dimensions LVOT 2.23 cm (M/F) 1.5-2.5 M-Mode Dimensions RVDd 2.85 cm (0.9-2.6) LA Diam 3.34 cm (1.9-4.0) LVDd 4.02 cm (3.5-5.7) Ao Diam 2.53 cm (2.0-3.7) LVDs 2.79 cm (3.5-5.7) IVSd 1.23 cm (0.6-1.1) PWd 1.28 cm (0.6-1.1) EF (Teich) 58.60% FS 30.60% EDV (Teich) 70.80 mL ESV (Teich) 29.30 mL LV Diastology E Decel Time 303.00 (160-240 msec) E/A Ratio 0.9 MED E' 8.40 (< 7 cm/sec) E'/MED E' Ratio 7.40 (>14) LAT E' 8.80 (<10 cm/sec) E/LAT E' Ratio 7.07 (>14) Aortic Valve LVOT Max 121.00 (70-110 cm/s) LVOT VTI 28.42 cm AoV Peak Jay. 297.00 (50-130 cm/s) AO Peak GR. 35.20 mmHg AO Mean GR. 17.30 (<5 mmHg) AO VTI 56.16 (18-25 cm) ROSAURA (VTI) 1.98 (2.5-4.5 cm2) Mitral Valve MV E Max Jay. 62.00 (40-130 cm/s) MV A Velocity 72.00 (40-130 cm/s) E/A Ratio 0.86 MV Decel. Time 303.00 (160-240 ms) MV PHT 89.00 ms Left Ventricle Technically very difficult and poor study because of the patient factors and poor acoustic windows, despite Definity contrast used the endocardial surfaces are poorly visualized. Left atrium is mildly enlarged, left ventricle is not well visualized, there is mild concentric left ventricular hypertrophy, summation of the ejection fraction is difficult from the study, either a transesophageal echocardiogram or MUGA scan is recommended. Right Ventricle Right atrium and right ventricle mildly enlarged with normal contractility. Aortic Valve Aortic valve is thickened and calcified with restriction to leaflet mobility, degree of aortic stenosis cannot be ascertained from this study. Mitral Valve Mitral valve leaflets are minimally thickened, there is mild mitral regurgitation. Tricuspid Valve Tricuspid grossly normal, there is trace tricuspid regurgitation, tricuspid regurgitation jet velocity is inadequate for calculation of the right ventricular systolic pressure. Pulmonic Valve Pulmonic valve is poorly visualized. Great Vessels Aortic root is normal size. Pericardium No significant pericardial effusion noted. Conclusion 1. Technically difficult and poor study as described above, this study is inadequate for accurate assessment of the left ventricular systolic function, if clinically indicated transesophageal echocardiogram or MUGA scan is recommended. 2. Thickened and calcified aortic valve there is aortic stenosis present which cannot be accurately assessed from this study. 3. No significant pericardial effusion noted Electronically signed by : Lamberto Garcia, 01/21/2021 15:30:33
== END ==
PROVIDERS: Visit Provider Internal Medicine
DX: D75.1 Secondary polycythemia (principal); E66.09 Other obesity due to excess calories; E78.2 Mixed hyperlipidemia; I11.9 Hypertensive heart disease without heart failure; I25.10 Atherosclerotic heart disease of native coronary artery without angina pectoris; I42.9 Cardiomyopathy, unspecified; I44.0 Atrioventricular block, first degree; I48.0 Paroxysmal atrial fibrillation; I71.4 Abdominal aortic aneurysm, without rupture; I73.9 Peripheral vascular disease, unspecified; R53.83 Other fatigue; R94.31 Abnormal electrocardiogram [ECG] [EKG]; Z85.528 Personal history of other malignant neoplasm of kidney
CPT/HCPCS: 93306; Q9957

== ENCOUNTER 2021-02-03 08:15 | Day surgery (SDC) | payer MEDICARE, OTHER, SELFPAY ==
[2021-02-03] VITALS (12 sets, daily range): BP systolic 70–161; BP diastolic 42–78; PULSE 60–81; RESP 16–20; TEMP 36.2–36.5; O2SAT 89–97; BMI 35.5
--- NOTE | 2021-02-03 | IR_ITS ---
APPROVED REPORT Patient Location: Outpatient Auto Vinyl Top Installer: SPENCER Lloyd RT (R) PROCEDURES 1. Pocket formation for biventricular pacemaker generator with cardiac resynchronization/pacing therapy. 2. Placement of atrial sensing and pacing lead into the right atrial appendage. 3. Placement of a right ventricular sensing pacing lead in the right ventricular apex. 4. Placement of left ventricular sensing pacing lead via the coronary sinus. 5. Permanent cardiac resynchronization therapy implantation/biventricular pacemaker. INDICATION Systolic Congestive Heart Failure, ejection <35%, Wide QRS >120ms, [place] Heart Assoication Class 3 Congestive Heart Failure, Sinus Bradycardia, Ischemic Cardiomyopathy, First degree AV block wiht CLBBB Informed consent was obtained prior to the procedure. COMPLICATIONS NONE Estimated Blood Loss: LESS THAN 10 ML TECHNIQUE 1% Lidocaine with epinephrine used to anesthetized the left anterior aspect of the chest. Scalpel was used to make the initial cutaneous incision while electrocautery was used to dissect down tinto the fascia. The fascia was lifted off the pectoralis muscle and digitally manipulated creating a pocket for the defibrillator. The patient was then placed in Trendelenburg position and the subclavian vein was accessed 3 times via the Selinger technique. A 6 Slovenian sheath was placed under fluoroscopic guidance into the subclavian vein. The dilator was removed from the sheath. Using fluoroscopic guidance, the ventricular lead was placed into the right ventricular apex, screwed and secured into place. Electronic interrogation proved acceptable thresholds and voltage within the lead. Using 3-0 silk, the ventricular lead was then secured into place and sheath peeled away. Following this, a 9.5 [place]ian sheath and dilator was then placed over one of the wires while keeping the other wire in place within the subclavian vein. The dilator was removed from the sheath. Using fluoroscopic guidance, contrast was used to visualize the coronary sinus, the left ventricular lead was placed into the coronary sinus. Electronic interrogation proved acceptable thresholds and voltage within the lead. Using 3-0 silk, the left ventricular lead was then secured into place and sheath peeled away.An additional 6 [place]ian fresh sheath and dilator was placed over the existing wire. Using fluoroscopic guidance, the atrial lead was then placed into the right atrial appendage and screwed and secured in place. Electrical interrogation demonstrated acceptable thresholds and voltage number. The atrial lead was then secured into place using 3-0 silk and sheath peeled away. 1 gram of Ancef was used to flush the pocket. All 3 leads were connected to generator and tested via computer. The defibrillator then secured to the fascia. Monocryl was used to close the subcutaneous layers while lizzy were used to close the cutaneous layer. A pressure dressing was placed and the patient was transferred to the postop holding area in stable condition for postoperative care. INTERROGATION Generator Model number: VISIONIST X4 IS-1/IS4 U228 Generator Serial number: [id number] Atrial lead model number: INGEVITY + IS-1 BI POTITIVE FIX RA/RV 59 CM 7842 Atrial lead serial number: [id number] P-wave: 4.0 mV Impedence: 551 OHMS Threshold: 0.9V@0.4ms Current: 1.7 mA Left Ventricular lead model number: ACUITY X4 STRAIGHT LVA QUAD ELECTRODE IS4 PASSIVE 86 CM 4671 Left Ventricular lead serial number: [id number] R-wave: 9.4 mV Threshold: 1.6 V@1.0 ms Right Ventricular lead model number: INGEVITY + IS-1 BI POSITIVE FIX RA/RV 52 CM 7841 Right Ventricular lead serial number: [id number]
--- NOTE | 2021-02-03 08:26 | NM_ITS ---
APPROVED REPORT NM Technologist: SPENCER Grider RT(R)(N) Indication Fatigue Cardiomyopathy Cardiac Risk Factors Hypertension: CAD, Diabetes Surgery/Intervention 8:45 am 25.3 [facility] tc sodium pertechnatate Impression Normal EF 62% No wall motion abnormalities Please correlate with echo and EKG Conclusion Normal EF 62% No wall motion abnormalities Please correlate with echo and EKG Electronically signed by : Vignesh Devlin MD 02/03/2021 11:55:34
[2021-02-03 10:19] LABS: Chloride 100 mmol/L (98-107); Potassium 3.9 mmoL/L (3.5-5.1); Sodium 139 mmol/L (136-145)
[2021-02-03 10:20] LABS: Basophils # 0.1 K/mm3 (0-0.2); Basophils % 0.7 % (0.1-2.0); Eosinophils # 0.2 K/mm3 (0.0-0.4); Eosinophils % 2.2 % (0.1-12.0); Hematocrit 42.6 % (42.0-52.0); Hemoglobin 14.4 g/dL (14.1-18.0); Lymphocytes # 2.4 K/mm3 (0.7-4.5); Lymphocytes % 31.1 % (10-50); Mean Corpuscular HGB Conc 33.8 g/dL (31.8-35.4); Mean Corpuscular Hemoglobin 31.9 pg (27.0-31.2); Mean Corpuscular Volume 94.4 fl (80-94); Mean Platelet Volume 7.6 fl (7.4-10.4); Monocytes # 0.5 K/mm3 (0.1-1.0); Monocytes % 6.3 % (1.7-9.3); Neutrophils # 4.5 K/mm3 (1.8-7.8); Neutrophils % 59.8 % (37.0-80.0); Platelet Count 199 K/mm3 (142-424); Red Blood Count 4.51 M/mm3 (4.60-6.20); Red Cell Distribution Width 13.6 % (11.5-17.5); White Blood Count 7.6 K/mm3 (4.8-10.8)
[2021-02-03 10:22] LABS: Anion Gap 11.9 mEq/L (5-15); Blood Urea Nitrogen 16 mg/dl (9-20); Calcium 9.4 mg/dl (8.4-10.2); Carbon Dioxide 31 mmol/L (22.0-30.0); Creatinine Clearance Estimated 102 mL/min (50-200); Estimated Glomerular Filt Rate 82 ml/min (>60); GFR (African American) 99 ML/MIN (>60); Glucose 104 mg/dl (74-100)
[2021-02-03 10:53] LABS: Coronavirus 19 IgG Antibody Positive (Negative); Coronavirus 19 IgM Antibody Negative (Negative)
--- NOTE | 2021-02-03 13:44 | XR_ITS ---
PROCEDURE: XR CHEST PORTABLE CLINICAL HISTORY: Confirm pacemaker/AID placement COMPARISON: CR XR CHEST 2V from 07/22/2019 FINDINGS: Mild cardiomegaly without failure. There are low lung volumes. Biventricular pacemaker is present from left subclavian approach with right atrial lead also noted. Leads are in good position. No evidence of pneumothorax. Mild atelectatic changes right lung base. IMPRESSION: Interval insertion biventricular pacemaker with good lead position and no evidence of pneumothorax. Dictated by: Vignesh Devlin MD 02/03/2021 14:35 Vignesh Devlin MD in [place] 02/03/2021 14:35
--- NOTE | 2021-02-03 14:03 | HMH.ANESCL ---
[facility] Anesthesia Checklist - Structural Data Admitted From: Home Planned Operative Procedure/s: BIV pacemaker placement Consent for Planned Operative Procedure(s) Verified: Yes Verified Documents: Surgical Consent, History and Physical - NPO Status Verified Time NPO: 00:00 - Airway Assessment C-Spine Mobility Assessed: Yes TMJ Mobility Assessed: Yes Dentition: Good Dentition - Neurological Assessment Level of Consciousness: Awake, Alert - Anesthesia Plan Anesthesia Risk discussed: Yes Anesthesia Plan: Verified ASA Class: III Anesthesia Type: MAC [facility] History Medical History: Reports:: Cancer, Coronary Artery Disease, Diabetes Mellitus Type 2, Hyperlipidemia, Hypertension Denies:: Diabetes Mellitus Type 1, MRSA, Seizures *Have you ever received a pneumonia vaccine?: No *Have you received a flu vaccine this season?: Yes Other Medical History: Reports: Hypothyroidism Anesthesia experience/problems:: None Other Surgeries: Yes: No Previous Surgery, Angioplasty, Cancer Surgery, Other Amputation: No Fractures: No - *Social History Smoking Status: Former smoker Tobacco Type: cigarettes Alcohol Intake: never Alcohol Intake Frequency:: 3 or more drinks per day Substance Use Type: denies use *Occupational Status:: retired Housing: house Household Members: spouse *Travel in the last 8 weeks: None Family Hx:: Cancer
--- NOTE | 2021-02-03 15:08 | SUR.PHASEII ---
HEMATOMA NOTED AT PPM SITE, PRESSURE BEING HELD AT THIS TIME PER DR FUENTES INSTRUCTION.
--- NOTE | 2021-02-03 19:33 | PC.NURSE ---
Pt alert and oriented and into floor at 1545. VSS. At approx 1730 pts hematoma become enlarged, this nurse held pressure until 1734, and called another RN which assisted and held pressure to site for 10 minutes and hematoma improved, [id number]. PRN pain med given per mar as pts site is painful to touch. Gauze does have blood, but isn't changing currently. Sand bag applied and site still ok at this time. Pt was c/o of nausea and felt as if he was going to vomit, although he refused zofran after explaining action of med several times. Pt made aware he has it ordered if needed. CB in reach and at bedside. Bedside report given to Naeem Vogel RN
--- NOTE | 2021-02-03 19:38 | PC.NURSE ---
Pt has been paced on tele.
[2021-02-04] VITALS: PULSE 75
[2021-02-04 04:00] VITALS: BP 142/73; PULSE 66; PULSE 70; RESP 18; O2SAT 90
[2021-02-04 05:00] VITALS: BMI 35.4
--- NOTE | 2021-02-04 05:52 | PC.NURSE ---
patient in for observation of Large Hematoma at surgical sight for Heart Cath. Red sand bad applied at 1900 with success of no bleeding since. Provider aware. Patient has shown no s/s acute distress noted, call light within reach, bed at lowest level for safety; will continue to monitor.
[2021-02-04 06:57] LABS: Hemoglobin 12.5 g/dL (14.1-18.0)
[2021-02-04 07:51] VITALS: BP 139/74; PULSE 69; RESP 17; TEMP 36.6; O2SAT 91
[2021-02-04 08:00] VITALS: PULSE 80
--- NOTE | 2021-02-04 10:55 | PC.NURSE ---
D/C instructions given to outpatient on pacer instructions, Catrina Hemphill APRN did also see and change pacer site dsg. F/U to follow with cardiology. VSS this am.
== END 2021-02-04 11:09 | disposition home or self-care (01) ==
LOC: CATHLAB 08:18 → 2ND 14:59
PROVIDERS: Visit Provider Internal Medicine
DX: I25.5 Ischemic cardiomyopathy (principal); I48.0 Paroxysmal atrial fibrillation; D75.1 Secondary polycythemia; I25.10 Atherosclerotic heart disease of native coronary artery without angina pectoris; Z85.528 Personal history of other malignant neoplasm of kidney; R42 Dizziness and giddiness; E78.2 Mixed hyperlipidemia; E66.9 Obesity, unspecified; Z68.37 Body mass index [BMI] 37.0-37.9, adult; I11.0 Hypertensive heart disease with heart failure; I73.9 Peripheral vascular disease, unspecified; I71.4 Abdominal aortic aneurysm, without rupture; Z87.891 Personal history of nicotine dependence; E03.9 Hypothyroidism, unspecified; I44.7 Left bundle-branch block, unspecified; I50.22 Chronic systolic (congestive) heart failure; I44.0 Atrioventricular block, first degree
CPT/HCPCS: 33208; 33225; 36415; 71045; 78473; 80048; 85014; 85018; 85025; 86328; A9512; C1769; C1898; C1900; C2621; Q9967; U0003